=== PATIENT | female | born 1970 | race American Indian/Alaskan Native ===

== ENCOUNTER 2016-10-16 14:06 | Emergency (ER) | payer SELFPAY ==
[2016-10-16 14:41] VITALS: BP 176/98
--- NOTE | 2016-10-16 14:42 | Emergency Department Report ---
Entered by ROGE VIEIRA, acting as scribe for NOLAN MART NP. Stated Complaint: LEFT HAND SWELLING/SHARP PAIN Time Seen by Provider: 10/16/16 14:33 - HPI History of Present Illness: 46 y/o female presents c/o 10/10 left hand pain that started yesterday and swelling that started today. Sx include stinging similar to that of a bugbite but pt denies any injury to the area or fever. - ROS Review of Systems: +left hand pain/swelling -Fever -injury to area - Exam Vital Signs: Vital Signs 10/16/16 14:35 Temperature 97.5 F L Pulse Rate 110 H Respiratory 16 Rate Blood Pressure 176/98 O2 Sat by Pulse 98 Oximetry Physical Exam: PT with pain and swelling to L post hand at 3rd MCP MSE screening note: Focused history and physical exam performed. Due to findings the following was ordered: xr ED Disposition for MSE Condition: Stable This documentation as recorded by the scribe,ROGE VIEIRA,accurately reflects the service I personally performed and the decisions made by ,NOLAN MART , HEMATOLOGY ONCOLOGY CONSULTANT.
--- NOTE | 2016-10-16 14:55 | XRay Report ---
LEFT HAND, 3 views: History: Left hand pain. The bony architecture is intact. Bony alignment is normal. No soft tissue abnormalities are seen. The joint spaces appear preserved. IMPRESSION: Normal left hand.
[2016-10-16] MEDS ORDERED: TORADOL IM ONE (17:13)
--- NOTE | 2016-10-16 17:15 | Emergency Department Report ---
Upper Extremity - HPI Chief Complaint: Extremity Injury, Upper Stated Complaint: RIGHT HAND SWELLING/SHARP PAIN Time Seen by Provider: 10/16/16 14:33 Upper Extremity: Left Hand (swelling with pain) Occurred When: 1 Day Mechanism: Other (denies any trauma) Symptoms: Yes Pain with Movement, Yes Limited Range of Movement, Yes Swelling, No Deformity, No Numbness, No Weakness, No Bruising/Ecchymosis, No Laceration or Abrasion ED Review of Systems ROS: Stated complaint: RIGHT HAND SWELLING/SHARP PAIN Other details as noted in HPI This is a 46-year-old female that presents left head pain that occurred yesterday. Patient describes her pain as stinging and achy. Patient states that her left hand swollen. Pain level is 10 out of 10. Denies any trauma to hand. Patient stated woke up with these symptoms. Denies any fever or chills. Denies any numbness or tingling sensation. Denies any deformity. Patient stated has a history of gout. Last gout was about 8 months ago and been prescribed steroids which subsided. Patient denies any shortness of breath and chest pain. Patient does not seem toxic or ill appearance. Constitutional: denies: chills, fever Eyes: denies: eye pain, eye discharge, vision change ENT: denies: ear pain, throat pain Respiratory: denies: cough, shortness of breath, wheezing Cardiovascular: denies: chest pain, palpitations Endocrine: no symptoms reported Gastrointestinal: denies: abdominal pain, nausea, diarrhea Genitourinary: denies: urgency, dysuria, discharge Musculoskeletal: denies: back pain, joint swelling, arthralgia Skin: denies: rash, lesions Neurological: denies: headache, weakness, paresthesias Psychiatric: denies: anxiety, depression Hematological/Lymphatic: denies: easy bleeding, easy bruising ED Past Medical Hx - Past Medical History Hx Hypertension: Yes Hx Arthritis: Yes Additional medical history: HIGH CHOLESTEROL. OBESITY - Surgical History Additional Surgical History: RIGHT ANKLE SURGERY - Social History Smoking Status: Never Smoker Substance Use Type: None - Medications Home Medications: Home Medications Medication Instructions Recorded Confirmed Last Taken Type Naproxen [Naprosyn TAB] 500 mg PO BID 7 Days 10/16/16 Unknown Rx Prednisone [predniSONE] 40 mg PO QDAY 5 Days 10/16/16 Unknown Rx Upper Extremity Exam - Exam General: Vital signs noted. No distress. Alert and acting appropriately. Edema with tenderness noted in the index and middle metacarpophalangeal joints. Denies any numb or tingling sensation extremity. Denies any trauma to the area. History of gout. Normal range of motion of phalanges. Normal capillary refill present less than 2 seconds Head and Torso: No HEENT Abnormality, No Neck Tenderness, No Chest/Lungs Abnormality, No Abdominal Tenderness, No Back Tenderness Shoulder Exam: Yes Normal Range of Motion in Shoulder, No Shoulder Tenderness, No Clavicle Tenderness, No Shoulder Deformity, No AC Joint Tenderness Arm Exam: No Arm/Humerus Tenderness, No Arm Deformity Elbow: No Elbow Tenderness, No Normal Range of Motion in Elbow, No Elbow Deformity Forearm: No Forearm Tenderness, No Forearm Deformity, No Pain with Pronation, No Pain with Supination Wrist: Yes Normal ROM in Wrist, No Wrist Tenderness, No Wrist Deformity, No Snuffbox Tenderness, No Pain with Axial Thumb Compression Hand: Yes Hand Tenderness (index and middle metacarpophalangeal joints), Yes Normal ROM in Digit(s), No Hand Deformity, No Digit Tenderness, No Digit(s) Deformity, No Tendon Dysfunction CMS Exam: No Broken Skin, No Normal Distal Pulses, No Normal Capillary Refill, No Normal Distal Sensation ED Course Vital Signs 10/16/16 14:35 Temperature 97.5 F L Pulse Rate 110 H Respiratory 16 Rate Blood Pressure 176/98 O2 Sat by Pulse 98 Oximetry Vital Signs 10/16/16 10/16/16 14:35 17:36 Temperature 97.5 F L Pulse Rate 110 H 99 H Respiratory 16 16 Rate Blood Pressure 176/98 O2 Sat by Pulse 98 98 Oximetry - Reevaluation(s) Reevaluation #1: 10/16/16 17:45 Dr. Wall aware of patient v/s and d/c plan. Reevaluation #2: 10/16/16 17:45 Patient pain level is 6/10. ED Medical Decision Making - Medical Decision Making Ed course: 46-year-old female that presents with gout of the index and middle metacarpophalangeal joints. 1- Solu-Medrol IM 40 mg in the ER 2- Toradol IM 60 mg in ER 3-patient does not seem toxic or any signs of distress 4- I instructed the patient to follow up with her primary care doctor in 3-5 days. 5- I instructed the patient to continue taking her prescribed medication as prescribed. 6- time of discharge the patient does not seem in any signs of any distress 7- patient agrees to discharge plan and treatment. No further questions for the patient noted. 8- I instructed the patient to avoid red meats, cheese, alcohol and increase fluid intake. Critical care attestation.: If time is entered above; I have spent that time in minutes in the direct care of this critically ill patient, excluding procedure time. 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 If symptoms worsen report back to emergency room. Take medication as prescribed. Avoid red meats, alcohol, cheese. Increase fluid intake. Prescriptions: Naproxen [Naprosyn TAB] 500 mg PO BID 7 Days Prednisone [predniSONE] 40 mg PO QDAY 5 Days Referrals: PRIMARY CARE, [Primary Care Provider] - 3-5 Days [facility] [Outside] - 3-5 Days [facility] [Outside] - 3-5 Days Forms: Work/School Release Form(ED)
== END 2016-10-16 17:50 | disposition home or self-care (01) ==
LOC: ED 14:06
DX: M1A.0420 Idiopathic chronic gout, left hand, without tophus (tophi) (principal); I10 Essential (primary) hypertension; M19.90 Unspecified osteoarthritis, unspecified site; E78.00 Pure hypercholesterolemia, unspecified; E66.9 Obesity, unspecified
CPT/HCPCS: 73130; 96372; 99283; J1885; J2920

== ENCOUNTER 2021-06-16 09:03 | Emergency (ER) | payer OTHER ==
[2021-06-16] MEDS ORDERED: hydrALAZINE 20 MG/1 ML INJ IV ONE (10:00)
--- NOTE | 2021-06-16 10:29 | Emergency Department Report ---
HPI - General Chief Complaint: High BP Time Seen by Provider: 06/16/21 09:13 - HPI HPI: 51-year-old -[place] female presents to the emergency department via EMS from work with complaint of some lightheadedness, left thigh pain, and uncontrolled blood pressure. 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 She fell to the floor and says that she hit her head on some type of soft wall divider. She denies any loss of consciousness. She denies any headache, neck pain, back pain. She does have some pain to the left thigh. EMS came to evaluate the patient and she was found to have an extremely elevated blood pressure with a systolic blood pressure about 220. The patient does have a history of hypertension for which he is on lisinopril, amlodipine and a third unknown medication. She did not take her blood pressure medication yet today. She tells me that she has some lightheadedness. She denies any fever, vision change, slurred speech, notes or paresthesias, or any neurological deficits. She does not smoke cigarettes or use any illicit drugs. ED Past Medical Hx - Past Medical History Previous Medical History?: Yes Hx Hypertension: Yes Hx Arthritis: Yes Additional medical history: HIGH CHOLESTEROL. OBESITY - Surgical History Additional Surgical History: RIGHT ANKLE SURGERY - Social History Smoking Status: Never Smoker Substance Use Type: None - Medications Home Medications: Home Medications Medication Instructions Recorded Confirmed Last Taken Type HYDROcodone/APAP 5-325 [[place] 1 each PO Q6HR PRN #10 tablet 06/16/21 Unknown Rx 5/325] lisinopriL [Lisinopril] 10 mg PO DAILY 06/16/21 06/16/21 Unknown History ED Review of Systems ROS: Stated complaint: HIGH BLOOD PRESSURE Other details as noted in HPI Comment: All other systems reviewed and negative Constitutional: denies: chills, fever Eyes: denies: eye pain, vision change Respiratory: denies: cough, shortness of breath Cardiovascular: denies: chest pain, palpitations Gastrointestinal: denies: abdominal pain, vomiting Genitourinary: denies: dysuria, discharge Musculoskeletal: myalgia. denies: joint swelling Skin: denies: rash, lesions Neurological: other (Lightheaded). denies: headache Physical Exam - Physical Exam Vital Signs: Vital Signs 06/16/21 06/16/21 06/16/21 09:04 09:22 09:37 Temperature 97.4 F L Pulse Rate 110 H 99 H Respiratory 18 16 Rate Blood Pressure 192/122 Blood Pressure 228/126 [Left] O2 Sat by Pulse 96 98 100 Oximetry 06/16/21 09:54 Temperature Pulse Rate Respiratory Rate Blood Pressure Blood Pressure 192/122 [Left] O2 Sat by Pulse Oximetry Physical Exam: GENERAL: The patient is well-developed well-nourished. HENT: Normocephalic. Atraumatic. Patient has moist mucous membranes. EYES: Extraocular motions are intact. Pupils equal reactive to light bilaterally. NECK: Supple. Trachea is midline. CHEST/LUNGS: Clear to auscultation. There is no respiratory distress noted. HEART/CARDIOVASCULAR: Regular. There is mild tachycardia. There is no murmur. ABDOMEN: Abdomen is soft, nontender. Patient has normal bowel sounds. There is no abdominal distention. SKIN: Skin is warm and dry. There is some ecchymosis and a nonexpanding hematoma to the left lateral middle tib-fib. NEURO: The patient is awake, alert, and oriented. The patient is cooperative. The patient has no focal neurologic deficits. Normal speech. Cranial nerves II through XII grossly intact. No facial asymmetry. MUSCULOSKELETAL: There is some tenderness to palpation to the left thigh and left mid tib-fib. There is no limitation range of motion. ED Course Vital Signs 06/16/21 06/16/21 06/16/21 09:04 09:22 09:37 Temperature 97.4 F L Pulse Rate 110 H 99 H Respiratory 18 16 Rate Blood Pressure 192/122 Blood Pressure 228/126 [Left] O2 Sat by Pulse 96 98 100 Oximetry 06/16/21 09:54 Temperature Pulse Rate Respiratory Rate Blood Pressure Blood Pressure 192/122 [Left] O2 Sat by Pulse Oximetry ED Medical Decision Making - Lab Data Result diagrams: 06/16/21 10:57 06/16/21 10:57 Lab Results 06/16/21 06/16/21 06/16/21 Range/Units 10:54 10:57 10:57 WBC 8.9 (4.5-11.0) K/mm3 RBC 4.06 (3.65-5.03) M/mm3 Hgb 10.5 (10.1-14.3) gm/dl Hct 33.3 (30.3-42.9) % MCV 82 (79-97) fl MCH 26 L (28-32) pg MCHC 32 (30-34) % RDW 14.6 (13.2-15.2) % Plt Count 277 (140-440) K/mm3 Lymph % (Auto) 22.2 (13.4-35.0) % [place] % (Auto) 6.6 (0.0-7.3) % Eos % (Auto) 0.2 (0.0-4.3) % Baso % (Auto) 0.2 (0.0-1.8) % Lymph # (Auto) 2.0 (1.2-5.4) K/mm3 [place] # (Auto) 0.6 (0.0-0.8) K/mm3 Eos # (Auto) 0.0 (0.0-0.4) K/mm3 Baso # (Auto) 0.0 (0.0-0.1) K/mm3 Seg Neutrophils % 70.8 H (40.0-70.0) % Seg Neutrophils # 6.3 (1.8-7.7) K/mm3 Sodium 145 (137-145) mmol/L Potassium 3.6 (3.6-5.0) mmol/L Chloride 108.2 H (98-107) mmol/L Carbon Dioxide 21 L (22-30) mmol/L Anion Gap 19 mmol/L BUN 14 (7-17) mg/dL Creatinine 0.6 (0.6-1.2) mg/dL Estimated GFR > 60 ml/min BUN/Creatinine Ratio 23 % Glucose 97 (65-100) mg/dL Calcium 9.2 (8.4-10.2) mg/dL TSH (0.270-4.200) mlU/mL Free T4 3.59 H (0.76-1.46) ng/dL // Range/Units 10:57 WBC (4.5-11.0) K/mm3 RBC (3.65-5.03) M/mm3 Hgb (10.1-14.3) gm/dl Hct (30.3-42.9) % MCV (79-97) fl MCH (28-32) pg MCHC (30-34) % RDW (13.2-15.2) % Plt Count (140-440) K/mm3 Lymph % (Auto) (13.4-35.0) % [place] % (Auto) (0.0-7.3) % Eos % (Auto) (0.0-4.3) % Baso % (Auto) (0.0-1.8) % Lymph # (Auto) (1.2-5.4) K/mm3 [place] # (Auto) (0.0-0.8) K/mm3 Eos # (Auto) (0.0-0.4) K/mm3 Baso # (Auto) (0.0-0.1) K/mm3 Seg Neutrophils % (40.0-70.0) % Seg Neutrophils # (1.8-7.7) K/mm3 Sodium (137-145) mmol/L Potassium (3.6-5.0) mmol/L Chloride (98-107) mmol/L Carbon Dioxide (22-30) mmol/L Anion Gap mmol/L BUN (7-17) mg/dL Creatinine (0.6-1.2) mg/dL Estimated GFR ml/min BUN/Creatinine Ratio % Glucose (65-100) mg/dL Calcium (8.4-10.2) mg/dL TSH 0.007 L (0.270-4.200) mlU/mL Free T4 (0.76-1.46) ng/dL - EKG Data -: EKG Interpreted by Md EKG shows normal: sinus rhythm (PVCs), axis, intervals (Prolonged QTC), QRS complexes, ST-T waves Rate: normal - EKG Data When compared to previous EKG there are: previous EKG unavailable Interpretation: other (Sinus rhythm at 97 bpm, PVCs, normal axis, slightly prolonged QTC. No ST elevation NH.) - Radiology Data Radiology results: image reviewed interpreted by me: X-ray of the left femur and left tib-fib did not show any fracture, dislocation, or any acute process. - Medical Decision Making This patient presents to the emergency department with the complaint of uncontrolled blood pressure, some lightheadedness, and left leg pain. Initially the patient was at work when some type of nhi fell down on top of her. When she was being evaluated by EMS she had very elevated blood pressure, but also admits to not taking her blood pressure medication today. On examination she does not have any focal, motor or sensory deficits and her cranial nerves are intact. Heart and lung sounds are normal to auscultation the patient does not appear in any respiratory or acute distress. The patient has some reproducible tenderness to palpation to the left thigh and left tib-fib. She has some ecchymosis and a nonexpanding hematoma to the left middle lateral tib- fib. EKG did not have any morphology consistent with ST elevation myocardial infarction or any arrhythmia. X-ray of the left femur and left tib-fib did not show any fracture, dislocation, or any acute processes. Patient's labs are mostly unremarkable including CBC and metabolic panel. She did have a low TSH and an elevated free T4. I discussed with the patient and she does have a history of hyperthyroidism. She says that she has not been on the medication for about 2 weeks. She has an appointment coming up early next week with a new primary care physician. The patient will be discharged home to follow-up with her new PCP. She has been instructed to take all of her blood pressure medications as previously prescribed. We discussed staying away from foods that are high in salt and caffeinated products, and keeping a blood pressure log. Patient was given a prescription for pain medication for her painful left leg. She was given an outpatient referral for an orthopedist. Patient will return to the emergency department with any worsening of her symptoms or with any acute distress. Critical Care Time: No Critical care attestation.: If time is entered above; I have spent that time in minutes in the direct care of this critically ill patient, excluding procedure time. ED Disposition Clinical Impression: Hematoma of lower leg, Uncontrolled hypertension, Hyperthyroidism Contusion of leg, left Qualifiers: Encounter type: initial encounter Qualified Code(s): S80.12XA - Contusion of left lower leg, initial encounter Disposition: HOME / SELF CARE / HOMELESS Is pt being admited?: No Condition: Stable Instructions: Hyperthyroidism, Contusion, Managing Your Hypertension, Hypertension (ED) Additional Instructions: Please follow-up with your primary care physician next week as previously scheduled. I'm giving you a referral for a local orthopedist, Dr. Wren, to follow-up regarding your left leg pain, contusion, and hematoma. Take all of your blood pressure medications as previously prescribed. Try to stay away from foods that are high in salt and caffeinated products. Keep a blood pressure log. You have been prescribed a medication that is sedating and therefore should not be taken prior to driving, working, and responsible for children and in no way should be mixed with alcohol of any quantity. Return to the emergency department with any worsening of your symptoms, new or concerning symptoms not addressed during this current emergency department visit, or with any acute distress. Prescriptions: HYDROcodone/APAP 5-325 [[place] 5/325] 1 each PO Q6HR PRN #10 tablet PRN Reason: Pain Referrals: PRIMARY CARE, [Primary Care Provider] - 3-5 Days AYESHA WREN MD [Staff Physician] - 3-5 Days Forms: Accompanied Note Time of Disposition: 13:36
--- NOTE | 2021-06-16 10:47 | XRay Report ---
LEFT FEMUR 2 VIEWS INDICATION: left thigh pain, trauma. COMPARISON: None. IMPRESSION: No acute osseous or soft tissue abnormality. Moderate osteoarthritic changes at the l eft knee. Signer Name: Arturo Osuna Jr, MD Signed: 06/16/2021 10:43 AM Workstation Name: [id number]
--- NOTE | 2021-06-16 12:27 | XRay Report ---
LEFT TIBIA/FIBULAR RADIOGRAPH, 2 VIEWS INDICATION / CLINICAL INFORMATION: left lower leg pain and hematoma, trauma COMPARISON: None available. FINDINGS: BONES / JOINT(S): No acute displaced fracture or subluxation. Moderate degenerative change of the lef t knee, most prominent in the lateral compartment. SOFT TISSUES: No significant abnormality. ADDITIONAL FINDINGS: Vascular calcifications are noted. Signer Name: Soledad Wick MD Signed: 06/16/2021 12:23 PM Workstation Name: [id number]
[2021-06-16 12:43] LABS: Basophils % (Auto) 0.2 % (0.0-1.8); Eosinophils % (Auto) 0.2 % (0.0-4.3); Hematocrit 33.3 % (30.3-42.9); Hemoglobin 10.5 gm/dl (10.1-14.3); Lymphocytes % (Auto) 22.2 % (13.4-35.0); Mean Corpuscular HGB Conc 32 % (30-34); Mean Corpuscular Volume 82 fl (79-97); Monocytes # (Auto) 0.6 K/mm3 (0.0-0.8); Monocytes % (Auto) 6.6 % (0.0-7.3); Platelet Count 277 K/mm3 (140-440); Red Blood Count 4.06 M/mm3 (3.65-5.03); Red Cell Distribution Width 14.6 % (13.2-15.2)
[2021-06-16 12:58] LABS: Blood Urea Nitrogen 14 mg/dL (7-17); Calcium 9.2 mg/dL (8.4-10.2); Hemolysis Index 5
[2021-06-16 13:05] LABS: BUN/Creatinine Ratio 23
[2021-06-16 13:13] VITALS: BP 176/96
--- NOTE | 2021-06-17 12:50 | Electrocardiograph Report ---
[facility] Test Date: 2021-06-16 Test Time: 13:06:51 Pat Name: SOLANGE PAYTON Department: Room: Gender: F Learning Officer: [facility] : 1970 Requested By: ROGE MARQUEZ Order Number: [id number] Reading MD: Goyo Santos Measurements Intervals Strum Rate: 97 P: 43 IL: 176 QRS: 19 QRSD: 101 T: -12 QT: 415 QTc: 527 Interpretive Statements Sinus rhythm Ventricular premature complex Probable left atrial enlargement Prolonged QT interval No previous ECG available for comparison Electronically Signed On 06-17-2021 12:50:13 EST by Goyo Santos
== END 2021-06-16 13:53 | disposition home or self-care (01) ==
LOC: ED 09:03
DX: S80.12XA Contusion of left lower leg, initial encounter (principal); I10 Essential (primary) hypertension; E05.90 Thyrotoxicosis, unspecified without thyrotoxic crisis or storm; M19.90 Unspecified osteoarthritis, unspecified site; E78.00 Pure hypercholesterolemia, unspecified; W18.39XA Other fall on same level, initial encounter; Y93.89 Activity, other specified; Y92.89 Other specified places as the place of occurrence of the external cause; Y99.8 Other external cause status
CPT/HCPCS: 36415; 73552; 73590; 80048; 84439; 84443; 85025; 93005; 96374; 96375; 99284; J0360; J3490